=== PATIENT | female | born 1960 | race Two or more races ===

== ENCOUNTER 2018-08-28 13:09 | Inpatient (IN) | payer MEDICAID ==
[~2018-08-28] VITALS: Ht 172.7 cm; Wt 105.6 kg
[~2018-08-28 13:09] MED LIST: LEV50T PO; METF-372 PO
[2018-08-28 14:49] LABS: Albumin 3.5 g/dL (3.4-5.0); Anion Gap 11 (5-15); BUN/Creatinine Ratio 14.2; Basophils # (auto) 0.1 uL; Basophils % (auto) 1.1 % (0.0-2.0); Blood Urea Nitrogen 19 mg/dL (7-18); Calcium 9.2 mg/dL (8.5-10.1); Carbon Dioxide 24 mmol/L (21-32); Chloride 93 mmol/L (98-107); Eosinophils # (auto) 0.2 uL; Eosinophils % (auto) 2.3 % (0.0-7.0); GFR African American 52 mL/min; GFR Non-African American 43 mL/min; Hematocrit 40.8 % (36.0-46.0); Hemoglobin 13.2 g/dL (12.2-16.2); Lymphocytes # (auto) 2.1 uL; Lymphocytes % (auto) 26.5 % (10.0-50.0); Magnesium 1.8 mg/dL (1.6-2.6); Mean Corpuscular Hemoglobin 29.6 pg (28.0-32.0); Mean Corpuscular Hgb Conc. 32.3 g/dL (32.0-36.0); Mean Corpuscular Volume 91.7 fL (80.0-100.0); Monocytes # (auto) 0.5 uL; Monocytes % (auto) 5.9 % (0.0-12.0); Neutrophils # (auto) 5.1 uL; Neutrophils % (auto) 64.2 % (37.0-80.0); Nucleated Red Blood Cells % 0.1 %; Platelet Count (auto) 303 10^3/uL (140-450); Potassium 3.6 mmol/L (3.5-5.1); Red Blood Cells 4.45 10^6/uL (4.0-5.20); Red Cell Distribution Width 13.1 % (11.8-14.3); Sodium 128 mmol/L (136-145)
[2018-08-28 14:52] LABS: Alkaline Phosphatase 124 U/L (45-117); Aspartate Aminotransferase 10 U/L (15-37); Bilirubin, Total 0.4 mg/dL (0.2-1.0); Total Protein 8.7 g/dL (6.4-8.2)
[2018-08-28 15:00] LABS: Alanine Aminotransferase 29 U/L (13-56)
[2018-08-28] MEDS ORDERED: SODIUM CHLORIDE 0.9% 1,000 ML IVB ONE (15:07)
[2018-08-28 15:09] LABS: Glucose 553 mg/dL (74-106)
[2018-08-28 15:14] LABS: Urine Bacteria NONE SEEN /hpf (None Seen); Urine Blood TRACE /uL (Negative); Urine Specific Gravity 1.019 (1.001-1.035); Urine WBC 12 /hpf (0 - 5)
[2018-08-28] MEDS ORDERED: InsuLIN REG 1unit/0.01ml Soln (100units/ml) IV ONE (17:30)
[2018-08-28] MEDS ORDERED: MORPHINE SULFATE 10 MG/ML INJ 1ML SDV IV PRN ×2 (18:30)
[2018-08-28] MEDS ORDERED: PANTOPRAZOLE 40 MG/10 ML VIAL IV ONE (18:30)
[2018-08-28] MEDS ORDERED: NITROGLYCERIN 0.4 MG SL TAB SL PRN (18:30)
[2018-08-28] MEDS ORDERED: PROMETHAZINE HCL 25 MG/ML 1ML IV PRN (18:30)
[2018-08-28] MEDS ORDERED: LORazepam 0.5 MG TAB PO PRN (18:30)
[2018-08-28] MEDS ORDERED: TEMAZEPAM 15 MG CAP PO PRN (18:30)
[2018-08-28] MEDS ORDERED: DEXTROSE (50%) 50ML SYRG IV PRN (18:30)
[2018-08-28] MEDS: SODIUM CHLORIDE 0.9% 1,000 ML IV SCH ×2 (18:42→21:11)
[2018-08-28] MEDS: ACCU-CHEK COMFORT CURVE STRIP VI SCH (20:00)
[2018-08-28 20:33] VITALS: BP 125/84
--- NOTE | 2018-08-28 20:33 | NUR ---
Telemetry admit from ER MARIEL BRISENO admitted to Telemetry unit. Patient oriented to INDERJIT MCKEON, primary RN, unit, room, bed, and unit policies regarding patient care and visiting hours. Patient now on continuous telemetry monitoring, tele box #[id number] and telemetry reading on arrival to unit is SR 77. Patient weighed by bedscale and encouraged to call if they need something. Bed locked in lowest position, side rails upx2, call light within reach. All questions and concerns addressed, patient verbalized understanding.
[2018-08-28] MEDS: InsuLIN REG 1unit/0.01ml Soln (100units/ml) SC SCH (20:51)
[2018-08-28] MEDS: INSULIN LANTUS (GLARGINE) 1 /0.01ml (100units/ml) SC SCH (22:18)
[2018-08-28] MEDS: MORPHINE SULFATE 10 MG/ML INJ 1ML SDV IV PRN (22:42)
[2018-08-28 22:49] VITALS: BP 125/84
[2018-08-29] MEDS: ACCU-CHEK COMFORT CURVE STRIP VI SCH ×6 (00:12→23:50)
[2018-08-29] MEDS ORDERED: INSU1INJ19 SC (01:47)
[2018-08-29] MEDS ORDERED: CHOL20007 PO (01:47)
[2018-08-29] MEDS ORDERED: ENAL2.5T PO (01:47)
[2018-08-29] MEDS ORDERED: ALOG1TAB2 PO (01:47)
[2018-08-29] MEDS ORDERED: LEVO100T8 PO (01:47)
[2018-08-29] MEDS ORDERED: GABA300C10 PO (01:47)
[2018-08-29] MEDS ORDERED: ASPI-498 PO (01:47)
[2018-08-29] MEDS: SODIUM CHLORIDE 0.9% 1,000 ML IV SCH ×2 (03:50→14:00)
[2018-08-29] MEDS: InsuLIN REG 1unit/0.01ml Soln (100units/ml) SC SCH ×6 (03:50→23:49)
[2018-08-29] MEDS: MORPHINE SULFATE 10 MG/ML INJ 1ML SDV IV PRN ×2 (03:54→21:28)
[2018-08-29 05:04] VITALS: BP 95/55
[2018-08-29 05:27] LABS: Hematocrit 36.4 % (36.0-46.0); Hemoglobin 11.6 g/dL (12.2-16.2); Mean Corpuscular Hemoglobin 29.8 pg (28.0-32.0); Mean Corpuscular Hgb Conc. 31.9 g/dL (32.0-36.0); Mean Corpuscular Volume 93.3 fL (80.0-100.0); Platelet Count (auto) 197 10^3/uL (140-450); Red Cell Distribution Width 13.3 % (11.8-14.3); White Blood Cell 8.1 10^3/uL (4.4-10.8)
[2018-08-29 05:33] LABS: Band Neutrophils % (manual) 0; Basophils % (manual) 0 (0.0-2.0); Blast Cells 0; Metamyelocytes % 0; Myelocytes % 0; Promyelocytes % 0; Reactive Lymphocytes 0
[2018-08-29] MEDS: LEVOTHYROXINE SODIUM 50 MCG TAB PO SCH (06:24)
[2018-08-29] MEDS: INSULIN LANTUS (GLARGINE) 1 /0.01ml (100units/ml) SC SCH ×2 (06:36→21:38)
[2018-08-29 06:40] LABS: Eosinophils % (manual) 5 (0-7); Lymphocytes % (manual) 50 (10.0-50.0); Monocytes % (manual) 3 (0-12)
--- NOTE | 2018-08-29 07:43 | NUR ---
OPENING SHIFT NOTE ASSUMED CARE OF PATIENT. PATIENT AWAKE AND ALERT SITTING UP IN BED. NO S/S OF DISTRESS OR SOB NOTED. BED IN LOWEST LOCKED POSITION, CALL LIGHT WITHIN REACH. REVIEWED POC WITH PATIENT AND INSTRUCTED TO CALL FOR ASSIST NEEDED. CONTINUING TO MONITOR.
[2018-08-29 07:50] VITALS: BP 90/53
[2018-08-29] MEDS: cefTRIAXone 1GM/50ML D5W 50 ML IV SCH (08:05)
[2018-08-29 08:56] LABS: Chloride 110 mmol/L (98-107); Sodium 140 mmol/L (136-145)
[2018-08-29 09:04] LABS: Alanine Aminotransferase 22 U/L (13-56); Albumin 2.6 g/dL (3.4-5.0); Alkaline Phosphatase 92 U/L (45-117); Amylase 32 U/L (25-115); Anion Gap 3 (5-15); Aspartate Aminotransferase 17 U/L (15-37); Bilirubin, Total 0.4 mg/dL (0.2-1.0); Blood Urea Nitrogen 12 mg/dL (7-18); Calcium 7.8 mg/dL (8.5-10.1); Carbon Dioxide 27 mmol/L (21-32); Cholesterol 122 mg/dL (< 200); GFR African American > 60 mL/min; GFR Non-African American > 60 mL/min; Glucose 104 mg/dL (74-106); HDL Cholesterol 27 mg/dL (40-59); LDL Cholesterol 72 mg/dL (< 100); Lipase 228 U/L (73-393); Total Protein 6.6 g/dL (6.4-8.2); Triglycerides 266 mg/dL (< 150)
[2018-08-29] MEDS ORDERED: PANTOPRAZOLE 40 MG/10 ML VIAL IV SCH (10:00)
[2018-08-29 12:15] VITALS: BP 108/64
[2018-08-29] MEDS ORDERED: DEXTROSE (50%) 50ML SYRG IV PRN (14:15)
[2018-08-29] MEDS ORDERED: IOHEXOL 300 MG/ML 100ML BOTTLE IJ ONE (14:25)
[2018-08-29 17:06] VITALS: BP 110/59
--- NOTE | 2018-08-29 19:30 | NUR ---
RECEIVED PATIENT LYING IN BED, AWAKE, ALERT, ORIENTED X4. NO S/S OF RESPIRATORY DISTRESS. ORIENTED ON PLAN. BED IS LOCKED AND IN LOWEST LEVEL, SIDE RAILS UP X2, CALL LIGHT WITHIN REACH. WILL CONTINUE TO MONITOR.
[2018-08-29 22:00] VITALS: BP 139/78
[2018-08-29] MEDS ORDERED: INSULIN LANTUS (GLARGINE) 1 /0.01ml (100units/ml) SC SCH (22:00)
[2018-08-30] MEDS: SODIUM CHLORIDE 0.9% 1,000 ML IV SCH ×2 (04:40)
[2018-08-30 05:40] VITALS: BP 123/62
[2018-08-30] MEDS: ACCU-CHEK COMFORT CURVE STRIP VI SCH ×4 (06:08→23:47)
[2018-08-30] MEDS: InsuLIN REG 1unit/0.01ml Soln (100units/ml) SC SCH ×4 (06:08→23:47)
[2018-08-30] MEDS: LEVOTHYROXINE SODIUM 50 MCG TAB PO SCH (07:00)
[2018-08-30] MEDS: INSULIN LANTUS (GLARGINE) 1 /0.01ml (100units/ml) SC SCH ×2 (07:05→22:03)
--- NOTE | 2018-08-30 07:30 | NUR ---
OPENING SHIFT NOTE ASSUMED CARE OF PATIENT. PATIENT RESTING COMFORTABLY IN BED WITH EYES CLOSED. RESPIRATIONS EVEN AND UNLABORED, NO S/S OF DISTRESS OR SOB NOTED. BED IN LOWEST LOCKED POSITION, CALL LIGHT WITHIN REACH. CONTINUING TO MONITOR.
--- NOTE | 2018-08-30 07:57 | NUR ---
CARE ENDORSED TO AM SHIFT RN
[2018-08-30 08:00] VITALS: BP 130/73
[2018-08-30] MEDS: PANTOPRAZOLE 40 MG TAB PO SCH (09:29)
[2018-08-30] MEDS: cefTRIAXone 1GM/50ML D5W 50 ML IV SCH (09:29)
[2018-08-30 12:00] VITALS: BP 148/115
--- NOTE | 2018-08-30 12:50 | NUR ---
ORTHOSTATIC VITAL SIGNS 1221 SITTING 173/90 HR 75 1231 STANDING 162/97 HR 80 1247 FLAT 138/84 HR 69
[2018-08-30] MEDS ORDERED: LEVOTHYROXINE SODIUM 25 MCG TAB PO ONE (13:15)
[2018-08-30 16:00] VITALS: BP_SYST 139; BP_SYST 149; BP_DIAS 59; BP_DIAS 78
[2018-08-30] MEDS: GABAPENTIN 300 MG CAP PO SCH ×2 (16:14→22:02)
[2018-08-30] MEDS: HYDROcodone-ACET 5/325MG TAB PO PRN (16:15)
--- NOTE | 2018-08-30 18:47 | NUR ---
END OF SHIFT NOTE PATIENT AWAKE AND ALERT SITTING ON BEDSIDE. NO S/S OF DISTRESS OR SOB NOTED. BED IN LOWEST LOCKED POSITION, CALL LIGHT WITHIN REACH. WILL ENDORSE CARE TO NOC RN.
[2018-08-30 22:00] VITALS: BP 150/76
[2018-08-31 05:00] VITALS: BP 112/61
[2018-08-31] MEDS: GABAPENTIN 300 MG CAP PO SCH (05:48)
[2018-08-31] MEDS: InsuLIN REG 1unit/0.01ml Soln (100units/ml) SC SCH ×2 (05:49→12:00)
[2018-08-31] MEDS: ACCU-CHEK COMFORT CURVE STRIP VI SCH ×2 (05:49→12:00)
[2018-08-31] MEDS: INSULIN LANTUS (GLARGINE) 1 /0.01ml (100units/ml) SC SCH (06:51)
[2018-08-31] MEDS ORDERED: LEVOTHYROXINE SODIUM 25 MCG TAB PO SCH (07:00)
--- NOTE | 2018-08-31 07:23 | NUR ---
CARE ENDORSED TO AM SHIFT RN
--- NOTE | 2018-08-31 07:30 | NUR ---
RECEIVED REPORT FROM NIGHT NURSE. PATIENT RESTING IN BED, NO DISTRESS NOTED, WILL CONTINUE TO MONITOR.
[2018-08-31] MEDS ORDERED: NITR-52 PO (08:10)
[2018-08-31 09:00] VITALS: BP 113/68
[2018-08-31] MEDS: cefTRIAXone 1GM/50ML D5W 50 ML IV SCH (09:00)
[2018-08-31 09:02] VITALS: BP 113/68
[2018-08-31] MEDS: PANTOPRAZOLE 40 MG TAB PO SCH (10:00)
[2018-08-31] MEDS ORDERED: ENALAPRIL MALEATE 10 MG TAB PO SCH (10:00)
[2018-08-31] MEDS: HYDROcodone-ACET 5/325MG TAB PO PRN (10:17)
--- NOTE | 2018-08-31 11:16 | NUR ---
MEDICATIONS HELD IN PHARMACY, RETURNED TO THE PATIENT. PAPERWORK SIGNED.
--- NOTE | 2018-08-31 13:15 | NUR ---
Discharge instructions given as ordered. Encourage to follow up with PMD as instructed. All questions and concerns addressed. Patient verbalized understanding. Medication reconciliation form completed and copy given to patient. Home medications held in Pharmacy returned to patient. IV removed with catheter intact, pressure dressing applied. Patient taken to vehicle via wheelchair with all personal belongings, accompanied by staff and family member. No distress noted at time of departure.
== END 2018-08-31 13:15 | disposition home or self-care (01) | DRG 282 ==
LOC: EDBD 13:09 → ER 13:13 → TELE 18:21 → TELE-CENTR 20:32 → CENTRAL 08-29 15:43
PROVIDERS: ADMIT Internal Medicine; ATTEND Internal Medicine
DX: K85.90 Acute pancreatitis without necrosis or infection, unspecified (principal); N17.9 Acute kidney failure, unspecified; E11.21 Type 2 diabetes mellitus with diabetic nephropathy; E11.42 Type 2 diabetes mellitus with diabetic polyneuropathy; E11.65 Type 2 diabetes mellitus with hyperglycemia; E66.9 Obesity, unspecified; E86.0 Dehydration; N39.0 Urinary tract infection, site not specified; E87.1 Hypo-osmolality and hyponatremia; D32.9 Benign neoplasm of meninges, unspecified; E03.9 Hypothyroidism, unspecified; I10 Essential (primary) hypertension; N20.0 Calculus of kidney; Z90.49 Acquired absence of other specified parts of digestive tract; Z90.710 Acquired absence of both cervix and uterus; Z68.35 Body mass index [BMI] 35.0-35.9, adult
CPT/HCPCS: 36415; 70450; 71046; 74177; 80053; 80061; 81001; 82150; 82962; 83036; 83690; 83735; 84443; 84484; 85007; 85025; 85027; 87081; 87086; 93005; 96361; 96374; 96375; C9113; G0378; J0696; J1815

== ENCOUNTER 2019-03-19 17:08 | Inpatient (IN) | payer MEDICAID | END 2019-03-21 14:00 | disposition home or self-care (01) | LOC: ER 17:08 → OVERFLOW 17:09 → CENTRAL 23:12 | DX: E11.65 Type 2 diabetes mellitus with hyperglycemia (principal); N17.0 Acute kidney failure with tubular necrosis; E11.22 Type 2 diabetes mellitus with diabetic chronic kidney disease; N30.01 Acute cystitis with hematuria; E03.9 Hypothyroidism, unspecified; N39.0 Urinary tract infection, site not specified; E66.9 Obesity, unspecified; E78.5 Hyperlipidemia, unspecified; I12.9 Hypertensive chronic kidney disease with stage 1 through stage 4 chronic kidney disease, or unspecified chronic kidney disease; N18.9 Chronic kidney disease, unspecified ==

== ENCOUNTER 2019-06-09 16:05 | Emergency (ER) | payer MEDICAID ==
[~2019-06-09] VITALS: Ht 172.7 cm; Wt 101.2 kg
[~2019-06-09 16:05] MED LIST changes: +INSREG3 SUBCUT; +INSU1INJ19 SC; -LEV50T PO; +LEVO100T8 PO; -METF-372 PO
[2019-06-09 17:44] LABS: Basophils # (auto) 0.1 uL; Basophils % (auto) 0.9 % (0.0-2.0); Eosinophils # (auto) 0.3 uL; Hematocrit 36.8 % (36.0-46.0); Hemoglobin 12.3 g/dL (12.2-16.2); Lymphocytes # (auto) 1.6 uL; Lymphocytes % (auto) 18.1 % (10.0-50.0); Mean Corpuscular Hemoglobin 29.6 pg (28.0-32.0); Mean Corpuscular Hgb Conc. 33.3 g/dL (32.0-36.0); Mean Corpuscular Volume 88.8 fL (80.0-100.0); Monocytes # (auto) 0.5 uL; Monocytes % (auto) 5.5 % (0.0-12.0); Neutrophils # (auto) 6.3 uL; Neutrophils % (auto) 72.5 % (37.0-80.0); Platelet Count (auto) 252 10^3/uL (140-450); Red Blood Cells 4.14 10^6/uL (4.0-5.20); Red Cell Distribution Width 13.7 % (11.8-14.3); White Blood Cell 8.7 10^3/uL (4.4-10.8)
[2019-06-09 18:06] LABS: Albumin 3.4 g/dL (3.4-5.0); Anion Gap 6 (5-15); Blood Urea Nitrogen 13 mg/dL (7-18); Calcium 8.5 mg/dL (8.5-10.1); Carbon Dioxide 28 mmol/L (21-32); Chloride 104 mmol/L (98-107); Glucose 338 mg/dL (74-106); Potassium 3.9 mmol/L (3.5-5.1); Sodium 138 mmol/L (136-145)
[2019-06-09 18:11] LABS: Alanine Aminotransferase 48 U/L (13-56); Alkaline Phosphatase 153 U/L (45-117); Aspartate Aminotransferase 78 U/L (15-37); BUN/Creatinine Ratio 12.3; Bilirubin, Total 0.5 mg/dL (0.2-1.0); GFR African American 68 mL/min; GFR Non-African American 57 mL/min; Total Protein 8.3 g/dL (6.4-8.2)
[2019-06-09 20:25] VITALS: BP 137/77
== END 2019-06-09 20:36 | disposition home or self-care (01) ==
LOC: ER 16:07
DX: R07.89 Other chest pain (principal); F41.9 Anxiety disorder, unspecified; E11.9 Type 2 diabetes mellitus without complications; I10 Essential (primary) hypertension; E78.5 Hyperlipidemia, unspecified; Z90.710 Acquired absence of both cervix and uterus; Z98.51 Tubal ligation status; Z90.49 Acquired absence of other specified parts of digestive tract
CPT/HCPCS: 36415; 71045; 80053; 82962; 84484; 85025; 93005

== ENCOUNTER 2019-06-30 12:39 | Emergency (ER) | payer MEDICAID ==
[~2019-06-30] VITALS: Ht 172.7 cm; Wt 100.7 kg
[2019-06-30 13:51] LABS: Basophils # (auto) 0.1 uL; Basophils % (auto) 1.1 % (0.0-2.0); Eosinophils # (auto) 0.2 uL; Eosinophils % (auto) 2.2 % (0.0-7.0); Hematocrit 36.9 % (36.0-46.0); Hemoglobin 12.3 g/dL (12.2-16.2); Lymphocytes # (auto) 2.1 uL; Lymphocytes % (auto) 24.4 % (10.0-50.0); Mean Corpuscular Hemoglobin 29.6 pg (28.0-32.0); Mean Corpuscular Hgb Conc. 33.2 g/dL (32.0-36.0); Mean Corpuscular Volume 89.1 fL (80.0-100.0); Monocytes # (auto) 0.5 uL; Monocytes % (auto) 5.9 % (0.0-12.0); Neutrophils # (auto) 5.8 uL; Neutrophils % (auto) 66.4 % (37.0-80.0); Platelet Count (auto) 271 10^3/uL (140-450); Red Blood Cells 4.15 10^6/uL (4.0-5.20); Red Cell Distribution Width 13.4 % (11.8-14.3); White Blood Cell 8.7 10^3/uL (4.4-10.8)
[2019-06-30 14:32] LABS: Albumin 3.4 g/dL (3.4-5.0); Calcium 8.9 mg/dL (8.5-10.1); Potassium 4.1 mmol/L (3.5-5.1)
[2019-06-30 14:37] LABS: Bilirubin, Total 0.4 mg/dL (0.2-1.0); Total Protein 8.1 g/dL (6.4-8.2)
[2019-06-30] MEDS ORDERED: SODIUM CHLORIDE 0.9% 1,000 ML IV ONE (14:59)
[2019-06-30 16:00] VITALS: BP 139/69
[2019-06-30] MEDS ORDERED: InsuLIN REG 1unit/0.01ml Soln (100units/ml) IV ONE (16:00)
== END 2019-06-30 18:00 | disposition home or self-care (01) ==
LOC: ER 13:00
DX: E11.65 Type 2 diabetes mellitus with hyperglycemia (principal); R55 Syncope and collapse; E78.5 Hyperlipidemia, unspecified; I10 Essential (primary) hypertension; M25.551 Pain in right hip; Z53.29 Procedure and treatment not carried out because of patient's decision for other reasons; Z90.49 Acquired absence of other specified parts of digestive tract; Z98.51 Tubal ligation status; Z90.89 Acquired absence of other organs
CPT/HCPCS: 36415; 80053; 82010; 85025; 93005; 93971; 96361; 96374; 99284; J1815

== ENCOUNTER 2020-12-14 10:29 | Emergency (ER) | payer MEDICAID ==
[~2020-12-14] VITALS: Ht 172.7 cm; Wt 101.2 kg
[2020-12-14 11:14] LABS: Basophils # (auto) 0.1 10 ^3/uL (0-0.2); Basophils % (auto) 1.4 % (0.0-2.0); Eosinophils # (auto) 0.4 10 ^3/uL (0-0.8); Hematocrit 36.8 % (36.0-46.0); Hemoglobin 12.4 g/dL (12.2-16.2); Lymphocytes # (auto) 2.8 10 ^3/uL (0.4-5.4); Lymphocytes % (auto) 27.2 % (10.0-50.0); Mean Corpuscular Hemoglobin 30.2 pg (28.0-32.0); Mean Corpuscular Hgb Conc. 33.7 g/dL (32.0-36.0); Mean Corpuscular Volume 89.6 fL (80.0-100.0); Monocytes # (auto) 0.4 10 ^3/uL (0-1.3); Monocytes % (auto) 4.3 % (0.0-12.0); Neutrophils # (auto) 6.4 10 ^3/uL (1.6-8.6); Neutrophils % (auto) 63.1 % (37.0-80.0); Platelet Count (auto) 308 10^3/uL (140-450); Red Blood Cells 4.11 10^6/uL (4.0-5.20); Red Cell Distribution Width 13.3 % (11.8-14.3); White Blood Cell 10.1 10^3/uL (4.4-10.8)
[2020-12-14 11:38] VITALS: BP 129/69
[2020-12-14 11:41] LABS: Alanine Aminotransferase 18 U/L (13-56); Albumin 3.4 g/dL (3.4-5.0); Anion Gap 7 (5-15); Blood Urea Nitrogen 15 mg/dL (7-18); Calcium 8.9 mg/dL (8.5-10.1); Carbon Dioxide 27 mmol/L (21-32); Chloride 103 mmol/L (98-107); Glucose 151 mg/dL (74-106); Magnesium 2.2 mg/dL (1.6-2.6); Potassium 3.8 mmol/L (3.5-5.1); Sodium 137 mmol/L (136-145)
[2020-12-14 11:46] LABS: Alkaline Phosphatase 87 U/L (45-117); Aspartate Aminotransferase 17 U/L (15-37); BUN/Creatinine Ratio 12.8; Bilirubin, Total 0.5 mg/dL (0.2-1.0); GFR African American 61 mL/min; GFR Non-African American 50 mL/min; Total Protein 8.6 g/dL (6.4-8.2)
[2020-12-14 12:00] LABS: Urine Bacteria FEW /hpf (None Seen); Urine Blood Negative /uL (Negative); Urine Hyaline Cast FEW /lpf (0 - 2); Urine Mucus FEW (None Seen); Urine Specific Gravity 1.017 (1.001-1.035); Urine WBC 131 /hpf (0 - 5); Urine WBC Clumps PRESENT /hpf (None Seen)
[2020-12-14] MEDS ORDERED: cefTRIAXone 1GM/50ML D5W 50 ML IV ONE (12:15)
[2020-12-14] MEDS ORDERED: cefTRIAXone SOD 1,000 MG VL ONE (12:27)
[2020-12-14] MEDS ORDERED: LIDOCAINE 2% (LOCAL ANESTH.) PF 5ml SDV ONE (12:27)
[2020-12-14] MEDS ORDERED: cefTRIAXone W LIDOCAINE 1 GM IM IM ONE (12:30)
== END 2020-12-14 12:40 | disposition home or self-care (01) ==
LOC: EDBD 10:29 → ER 10:29
DX: N39.0 Urinary tract infection, site not specified (principal); R55 Syncope and collapse; I10 Essential (primary) hypertension; E11.40 Type 2 diabetes mellitus with diabetic neuropathy, unspecified; Z79.4 Long term (current) use of insulin; Z79.899 Other long term (current) drug therapy
CPT/HCPCS: 36415; 70450; 71045; 80053; 81001; 83735; 83880; 84484; 85025; 93005; 96372; 99285; J0696; J2001

== ENCOUNTER 2021-03-26 17:19 | Emergency (ER) | payer MEDICAID ==
[~2021-03-26] VITALS: Ht 172.7 cm; Wt 104.3 kg
[2021-03-26 14:08] LABS: Basophils # (auto) 0.1 10 ^3/uL (0-0.2); Basophils % (auto) 1.1 % (0.0-2.0); Eosinophils # (auto) 0.4 10 ^3/uL (0-0.8); Eosinophils % (auto) 4.2 % (0.0-7.0); Hematocrit 35.5 % (36.0-46.0); Hemoglobin 12.1 g/dL (12.2-16.2); Lymphocytes # (auto) 2.9 10 ^3/uL (0.4-5.4); Lymphocytes % (auto) 32.5 % (10.0-50.0); Mean Corpuscular Hemoglobin 30.5 pg (28.0-32.0); Mean Corpuscular Volume 89.5 fL (80.0-100.0); Monocytes # (auto) 0.4 10 ^3/uL (0-1.3); Monocytes % (auto) 4.5 % (0.0-12.0); Neutrophils # (auto) 5.1 10 ^3/uL (1.6-8.6); Neutrophils % (auto) 57.7 % (37.0-80.0); Nucleated Red Blood Cells % 0.1 %; Red Blood Cells 3.97 10^6/uL (4.0-5.20); Red Cell Distribution Width 14.8 % (11.8-14.3); White Blood Cell 8.9 10^3/uL (4.4-10.8)
[2021-03-26 14:35] LABS: Albumin 3.1 g/dL (3.4-5.0); Calcium 8.9 mg/dL (8.5-10.1); Potassium 4.2 mmol/L (3.5-5.1)
[2021-03-26 14:40] LABS: BUN/Creatinine Ratio 10.1; Bilirubin, Total 0.3 mg/dL (0.2-1.0); Total Protein 8.3 g/dL (6.4-8.2)
[2021-03-26 19:41] VITALS: BP 137/64
== END 2021-03-26 19:43 | disposition home or self-care (01) ==
LOC: ER 19:43
DX: R42 Dizziness and giddiness (principal); R94.6 Abnormal results of thyroid function studies; D64.9 Anemia, unspecified; E11.9 Type 2 diabetes mellitus without complications; E78.5 Hyperlipidemia, unspecified; I10 Essential (primary) hypertension; Z20.822 Contact with and (suspected) exposure to COVID-19; Z87.442 Personal history of urinary calculi; Z90.49 Acquired absence of other specified parts of digestive tract; Z98.890 Other specified postprocedural states; Z90.710 Acquired absence of both cervix and uterus; Z98.51 Tubal ligation status
CPT/HCPCS: 36415; 71045; 80053; 84443; 85025; 87426; 93005

== ENCOUNTER 2021-05-25 22:12 | Inpatient (IN) | payer MEDICAID ==
[~2021-05-25] VITALS: Ht 172.7 cm; Wt 109.7 kg
[2021-05-25] MEDS ORDERED: ACCU-CHEK COMFORT CURVE STRIP VI ONE (23:00)
[2021-05-25 23:29] LABS: Basophils # (auto) 0.1 10 ^3/uL (0-0.2); Basophils % (auto) 0.7 % (0.0-2.0); Eosinophils # (auto) 0 10 ^3/uL (0-0.8); Hematocrit 38.2 % (36.0-46.0); Hemoglobin 12.6 g/dL (12.2-16.2); Lymphocytes # (auto) 2.1 10 ^3/uL (0.4-5.4); Mean Corpuscular Hemoglobin 29.6 pg (28.0-32.0); Mean Corpuscular Hgb Conc. 33.1 g/dL (32.0-36.0); Mean Corpuscular Volume 89.3 fL (80.0-100.0); Monocytes # (auto) 1.8 10 ^3/uL (0-1.3); Monocytes % (auto) 8.7 % (0.0-12.0); Neutrophils # (auto) 16.7 10 ^3/uL (1.6-8.6); Neutrophils % (auto) 80.6 % (37.0-80.0); Red Blood Cells 4.28 10^6/uL (4.0-5.20); Red Cell Distribution Width 14.3 % (11.8-14.3); White Blood Cell 20.7 10^3/uL (4.4-10.8)
[2021-05-25 23:57] LABS: Anion Gap 10 (5-15); BUN/Creatinine Ratio 10.1; Blood Urea Nitrogen 18 mg/dL (7-18); Calcium 8.7 mg/dL (8.5-10.1); Carbon Dioxide 25 mmol/L (21-32); Chloride 98 mmol/L (98-107); GFR African American 37 mL/min; GFR Non-African American 31 mL/min; Glucose 312 mg/dL (74-106); Lactic Acid w/Reflex 2.3 mmol/L (0.4-2.0); Sodium 133 mmol/L (136-145)
[2021-05-26 00:03] LABS: Alanine Aminotransferase 16 U/L (13-56); Alkaline Phosphatase 105 U/L (45-117); Aspartate Aminotransferase 13 U/L (15-37); Bilirubin, Total 1.1 mg/dL (0.2-1.0); Total Protein 8.5 g/dL (6.4-8.2)
[2021-05-26 00:07] LABS: Urine Bacteria MANY /hpf (None Seen); Urine Blood 1+ /uL (Negative); Urine Hyaline Cast MANY /lpf (0 - 2); Urine Mucus FEW (None Seen); Urine Specific Gravity 1.016 (1.001-1.035); Urine WBC 447 /hpf (0 - 5); Urine WBC Clumps PRESENT /hpf (None Seen)
[2021-05-26] MEDS ORDERED: cefTRIAXone 1GM/50ML D5W 50 ML IV ONE (01:00)
[2021-05-26] MEDS ORDERED: SODIUM CHLORIDE 0.9% 1,000 ML IV ONE (01:00)
[2021-05-26] MEDS ORDERED: ONDANSETRON HCL 4 MG/2 ML VIAL IV ONE (01:00)
[2021-05-26] MEDS ORDERED: DEXTROSE (50%) 50ML SYRG IV PRN (06:15)
[2021-05-26] MEDS ORDERED: SODIUM CHLORIDE 0.9% 1,000 ML IV SCH (06:15)
[2021-05-26] MEDS ORDERED: NITROGLYCERIN 0.4 MG SL TAB SL PRN (06:15)
[2021-05-26] MEDS ORDERED: MORPHINE SULFATE INJECTION 2 MG/ML SYRG IV PRN (06:15)
[2021-05-26 06:56] LABS: Hematocrit 36.6 % (36.0-46.0); Hemoglobin 11.9 g/dL (12.2-16.2)
[2021-05-26] MEDS: cefTRIAXone 1GM/50ML D5W 50 ML IV SCH (09:23)
[2021-05-26] MEDS: PANTOPRAZOLE 40 MG/10 ML VIAL INJ IV SCH ×2 (09:23→22:25)
[2021-05-26] MEDS: ACCU-CHEK COMFORT CURVE STRIP VI SCH ×2 (15:24→18:13)
[2021-05-26] MEDS: SODIUM CHLORIDE 0.9% 1,000 ML IV SCH ×2 (15:24→21:30)
[2021-05-26] MEDS: metroNIDAZOLE 500MG/100ML 100 ML IV SCH ×2 (15:24→22:25)
[2021-05-26] MEDS: InsuLIN REG 1unit/0.01ml Soln (100units/ml) SC SCH ×2 (15:42→18:14)
[2021-05-26 15:50] LABS: INR 1.1 (0.9-1.15)
[2021-05-26 16:53] VITALS: BP 131/60
[2021-05-26 17:00] VITALS: BP 116/63
[2021-05-26] MEDS: SUCRALFATE 1 GM/10 ML ORAL SUSP PO SCH ×2 (18:14→22:25)
[2021-05-26 22:00] VITALS: BP 108/53
[2021-05-26] MEDS: HYDROcodone-ACET 7.5/325MG TAB PO PRN (23:18)
[2021-05-27] MEDS: ACCU-CHEK COMFORT CURVE STRIP VI SCH ×4 (00:04→18:46)
[2021-05-27 05:00] VITALS: BP 118/61
[2021-05-27] MEDS: SODIUM CHLORIDE 0.9% 1,000 ML IV SCH ×3 (05:30→21:30)
[2021-05-27] MEDS: InsuLIN REG 1unit/0.01ml Soln (100units/ml) SC SCH ×4 (05:50→18:46)
[2021-05-27] MEDS: metroNIDAZOLE 500MG/100ML 100 ML IV SCH ×3 (05:51→21:46)
[2021-05-27] MEDS: SUCRALFATE 1 GM/10 ML ORAL SUSP PO SCH ×4 (06:27→21:46)
[2021-05-27 06:29] LABS: Basophils # (auto) 0.1 10 ^3/uL (0-0.2); Basophils % (auto) 0.7 % (0.0-2.0); Eosinophils # (auto) 0.1 10 ^3/uL (0-0.8); Eosinophils % (auto) 1.2 % (0.0-7.0); Hematocrit 31.6 % (36.0-46.0); Hemoglobin 10.3 g/dL (12.2-16.2); Lymphocytes # (auto) 2.2 10 ^3/uL (0.4-5.4); Lymphocytes % (auto) 17.5 % (10.0-50.0); Mean Corpuscular Hemoglobin 29.1 pg (28.0-32.0); Mean Corpuscular Hgb Conc. 32.5 g/dL (32.0-36.0); Mean Corpuscular Volume 89.5 fL (80.0-100.0); Monocytes # (auto) 1.4 10 ^3/uL (0-1.3); Monocytes % (auto) 11.2 % (0.0-12.0); Neutrophils # (auto) 8.7 10 ^3/uL (1.6-8.6); Neutrophils % (auto) 69.4 % (37.0-80.0); Red Blood Cells 3.53 10^6/uL (4.0-5.20); Red Cell Distribution Width 13.9 % (11.8-14.3); White Blood Cell 12.5 10^3/uL (4.4-10.8)
[2021-05-27 06:44] LABS: Albumin 2.2 g/dL (3.4-5.0); BUN/Creatinine Ratio 10.4; Calcium 8.1 mg/dL (8.5-10.1); Potassium 3.7 mmol/L (3.5-5.1)
[2021-05-27 06:46] LABS: Bilirubin, Total 0.5 mg/dL (0.2-1.0); Total Protein 6.7 g/dL (6.4-8.2)
[2021-05-27] MEDS ORDERED: fentaNYL CITRATE 100 MCG/2 ML VL ONE (08:07)
[2021-05-27] MEDS ORDERED: diphenhdrAMINE HCL 50 MG/1 ML VL ONE (08:07)
[2021-05-27] MEDS ORDERED: SODIUM CHLORIDE LOCK 10 ML ONE (08:07)
[2021-05-27] MEDS ORDERED: MIDAZOLAM HCL 5 MG/ML-1ML VIAL ONE (08:07)
[2021-05-27] MEDS ORDERED: LIDOCAINE VISCOUS 2% 15ML UD ONE (08:07)
[2021-05-27 09:00] VITALS: BP 106/67
[2021-05-27] MEDS ORDERED: LEVOTHYROXINE SODIUM 112 MCG TAB PO ONE (09:15)
[2021-05-27] MEDS: PANTOPRAZOLE 40 MG/10 ML VIAL INJ IV SCH ×2 (10:31→21:46)
[2021-05-27] MEDS: cefTRIAXone 1GM/50ML D5W 50 ML IV SCH (10:31)
[2021-05-27] MEDS: LINEZOLID 600MG/300ML 300 ML IV SCH ×2 (11:39→22:26)
[2021-05-27 13:00] VITALS: BP 82/48
[2021-05-27 17:00] VITALS: BP 93/60
[2021-05-27] MEDS: HYDROcodone-ACET 7.5/325MG TAB PO PRN (20:14)
[2021-05-27] MEDS: ONDANSETRON HCL 4 MG/2 ML VIAL IV PRN (21:17)
[2021-05-27 22:00] VITALS: BP 115/64
[2021-05-28 05:00] VITALS: BP 97/47
[2021-05-28] MEDS: SODIUM CHLORIDE 0.9% 1,000 ML IV SCH ×3 (05:30→21:30)
[2021-05-28] MEDS: metroNIDAZOLE 500MG/100ML 100 ML IV SCH (06:00)
[2021-05-28] MEDS: ACCU-CHEK COMFORT CURVE STRIP VI SCH ×5 (06:22→23:38)
[2021-05-28] MEDS: SUCRALFATE 1 GM/10 ML ORAL SUSP PO SCH ×4 (06:23→22:56)
[2021-05-28] MEDS: LEVOTHYROXINE SODIUM 112 MCG TAB PO SCH (06:23)
[2021-05-28] MEDS: InsuLIN REG 1unit/0.01ml Soln (100units/ml) SC SCH ×5 (06:24→23:40)
[2021-05-28] MEDS: HYDROcodone-ACET 7.5/325MG TAB PO PRN (06:40)
[2021-05-28 09:00] VITALS: BP 123/63
[2021-05-28] MEDS: PANTOPRAZOLE 40 MG/10 ML VIAL INJ IV SCH ×2 (09:19→22:56)
[2021-05-28] MEDS: cefTRIAXone 1GM/50ML D5W 50 ML IV SCH (09:19)
[2021-05-28] MEDS: LINEZOLID 600MG/300ML 300 ML IV SCH ×2 (11:00→22:56)
[2021-05-28] MEDS: ONDANSETRON HCL 4 MG/2 ML VIAL IV PRN (11:00)
[2021-05-28 13:00] VITALS: BP 104/50
[2021-05-28] MEDS: metroNIDAZOLE 500 MG TAB PO SCH ×2 (15:29→22:56)
[2021-05-28 17:00] VITALS: BP 126/67
[2021-05-28 21:42] VITALS: BP 130/78
[2021-05-29 04:43] VITALS: BP 128/70
[2021-05-29 05:18] LABS: Basophils # (auto) 0.1 10 ^3/uL (0-0.2); Basophils % (auto) 1.2 % (0.0-2.0); Eosinophils # (auto) 0.5 10 ^3/uL (0-0.8); Eosinophils % (auto) 4.7 % (0.0-7.0); Hematocrit 31.9 % (36.0-46.0); Hemoglobin 10.6 g/dL (12.2-16.2); Lymphocytes # (auto) 2.3 10 ^3/uL (0.4-5.4); Mean Corpuscular Hemoglobin 29.7 pg (28.0-32.0); Mean Corpuscular Hgb Conc. 33.2 g/dL (32.0-36.0); Mean Corpuscular Volume 89.4 fL (80.0-100.0); Monocytes # (auto) 0.6 10 ^3/uL (0-1.3); Monocytes % (auto) 6.6 % (0.0-12.0); Neutrophils # (auto) 6.1 10 ^3/uL (1.6-8.6); Neutrophils % (auto) 63.5 % (37.0-80.0); Red Blood Cells 3.57 10^6/uL (4.0-5.20); Red Cell Distribution Width 13.8 % (11.8-14.3); White Blood Cell 9.6 10^3/uL (4.4-10.8)
[2021-05-29] MEDS: metroNIDAZOLE 500 MG TAB PO SCH ×3 (05:39→21:49)
[2021-05-29] MEDS: SODIUM CHLORIDE 0.9% 1,000 ML IV SCH ×3 (05:39→21:30)
[2021-05-29] MEDS: ACCU-CHEK COMFORT CURVE STRIP VI SCH ×3 (05:39→18:22)
[2021-05-29] MEDS: InsuLIN REG 1unit/0.01ml Soln (100units/ml) SC SCH ×3 (05:42→18:22)
[2021-05-29] MEDS: SUCRALFATE 1 GM/10 ML ORAL SUSP PO SCH ×4 (06:35→21:49)
[2021-05-29] MEDS: LEVOTHYROXINE SODIUM 112 MCG TAB PO SCH (06:36)
[2021-05-29 09:00] VITALS: BP 140/91
[2021-05-29] MEDS: cefTRIAXone 1GM/50ML D5W 50 ML IV SCH (09:07)
[2021-05-29] MEDS: PANTOPRAZOLE 40 MG/10 ML VIAL INJ IV SCH ×2 (10:42→22:34)
[2021-05-29] MEDS: LINEZOLID 600MG/300ML 300 ML IV SCH ×2 (10:42→22:35)
[2021-05-29] MEDS: HYDROcodone-ACET 7.5/325MG TAB PO PRN (11:16)
[2021-05-29 13:07] VITALS: BP 131/63
[2021-05-29 17:00] VITALS: BP 108/64
[2021-05-29 22:00] VITALS: BP 117/71
[2021-05-30] MEDS: ACCU-CHEK COMFORT CURVE STRIP VI SCH ×5 (00:03→23:31)
[2021-05-30] MEDS: InsuLIN REG 1unit/0.01ml Soln (100units/ml) SC SCH ×5 (00:05→23:33)
[2021-05-30] MEDS: ONDANSETRON HCL 4 MG/2 ML VIAL IV PRN ×4 (04:19→21:49)
[2021-05-30 05:00] VITALS: BP 136/77
[2021-05-30 06:03] LABS: Basophils # (auto) 0.1 10 ^3/uL (0-0.2); Basophils % (auto) 1.4 % (0.0-2.0); Eosinophils # (auto) 0.3 10 ^3/uL (0-0.8); Eosinophils % (auto) 3.7 % (0.0-7.0); Hematocrit 30.8 % (36.0-46.0); Hemoglobin 10.2 g/dL (12.2-16.2); Lymphocytes # (auto) 1.8 10 ^3/uL (0.4-5.4); Mean Corpuscular Hemoglobin 29.1 pg (28.0-32.0); Mean Corpuscular Hgb Conc. 33.2 g/dL (32.0-36.0); Mean Corpuscular Volume 87.8 fL (80.0-100.0); Monocytes # (auto) 0.6 10 ^3/uL (0-1.3); Monocytes % (auto) 6.7 % (0.0-12.0); Neutrophils # (auto) 5.7 10 ^3/uL (1.6-8.6); Neutrophils % (auto) 67.2 % (37.0-80.0); Red Blood Cells 3.51 10^6/uL (4.0-5.20); Red Cell Distribution Width 14.2 % (11.8-14.3); White Blood Cell 8.6 10^3/uL (4.4-10.8)
[2021-05-30 06:18] LABS: INR 1.05 (0.9-1.15); Partial Thromboplastin Time 27.3 sec (23.6-33.0)
[2021-05-30] MEDS: LEVOTHYROXINE SODIUM 112 MCG TAB PO SCH (06:30)
[2021-05-30] MEDS: SUCRALFATE 1 GM/10 ML ORAL SUSP PO SCH ×4 (06:30→21:51)
[2021-05-30] MEDS: SODIUM CHLORIDE 0.9% 1,000 ML IV SCH (06:31)
[2021-05-30] MEDS: metroNIDAZOLE 500 MG TAB PO SCH ×2 (06:31→14:19)
[2021-05-30 06:33] LABS: Albumin 2.2 g/dL (3.4-5.0); Calcium 8.4 mg/dL (8.5-10.1); Magnesium 1.9 mg/dL (1.6-2.6); Potassium 3.8 mmol/L (3.5-5.1)
[2021-05-30 06:37] LABS: BUN/Creatinine Ratio 10.5; Bilirubin, Total 0.3 mg/dL (0.2-1.0); Phosphorus 1.9 mg/dL (2.5-4.90); Total Protein 6.6 g/dL (6.4-8.2)
[2021-05-30 09:00] VITALS: BP 138/74
[2021-05-30] MEDS: LINEZOLID 600MG/300ML 300 ML IV SCH (09:22)
[2021-05-30] MEDS: cefTRIAXone 1GM/50ML D5W 50 ML IV SCH (09:22)
[2021-05-30] MEDS: PANTOPRAZOLE 40 MG/10 ML VIAL INJ IV SCH ×2 (09:23→21:48)
[2021-05-30] MEDS ORDERED: POTASSIUM PHOSPHATE 26.4 MEQ in SODIUM CHL 0.9% 100 ML IV ONE (12:15)
[2021-05-30 13:00] VITALS: BP 134/80
[2021-05-30 17:29] VITALS: BP 134/77
[2021-05-30] MEDS: HYDROcodone-ACET 7.5/325MG TAB PO PRN (21:50)
[2021-05-30] MEDS: AMOXICILLIN TRIHYDRATE 250 MG CAP PO SCH (21:51)
[2021-05-30 22:00] VITALS: BP 136/75
[2021-05-31 05:00] VITALS: BP 116/67
[2021-05-31] MEDS: InsuLIN REG 1unit/0.01ml Soln (100units/ml) SC SCH ×2 (06:00→12:30)
[2021-05-31] MEDS: SUCRALFATE 1 GM/10 ML ORAL SUSP PO SCH ×2 (06:08→11:30)
[2021-05-31] MEDS: AMOXICILLIN TRIHYDRATE 250 MG CAP PO SCH ×2 (06:08→13:43)
[2021-05-31] MEDS: ACCU-CHEK COMFORT CURVE STRIP VI SCH ×2 (06:09→12:29)
[2021-05-31] MEDS ORDERED: LEVOTHYROXINE SODIUM 50 MCG TAB PO SCH (07:00)
[2021-05-31 07:46] LABS: Calcium 8.4 mg/dL (8.5-10.1); Magnesium 1.8 mg/dL (1.6-2.6); Phosphorus 2.8 mg/dL (2.5-4.90); Potassium 3.9 mmol/L (3.5-5.1)
[2021-05-31 08:37] LABS: Basophils # (auto) 0.1 10 ^3/uL (0-0.2); Basophils % (auto) 1.1 % (0.0-2.0); Eosinophils # (auto) 0.4 10 ^3/uL (0-0.8); Eosinophils % (auto) 5.3 % (0.0-7.0); Hematocrit 34.2 % (36.0-46.0); Hemoglobin 10.8 g/dL (12.2-16.2); Lymphocytes # (auto) 2.6 10 ^3/uL (0.4-5.4); Lymphocytes % (auto) 31.4 % (10.0-50.0); Mean Corpuscular Hemoglobin 28.9 pg (28.0-32.0); Mean Corpuscular Hgb Conc. 31.5 g/dL (32.0-36.0); Mean Corpuscular Volume 91.8 fL (80.0-100.0); Monocytes # (auto) 0.6 10 ^3/uL (0-1.3); Monocytes % (auto) 6.8 % (0.0-12.0); Neutrophils # (auto) 4.6 10 ^3/uL (1.6-8.6); Neutrophils % (auto) 55.4 % (37.0-80.0); Nucleated Red Blood Cells % 0.1 %; Red Blood Cells 3.73 10^6/uL (4.0-5.20); Red Cell Distribution Width 14.5 % (11.8-14.3); White Blood Cell 8.3 10^3/uL (4.4-10.8)
[2021-05-31] MEDS: PANTOPRAZOLE 40 MG/10 ML VIAL INJ IV SCH (08:44)
[2021-05-31] MEDS: ONDANSETRON HCL 4 MG/2 ML VIAL IV PRN (08:53)
[2021-05-31 09:00] VITALS: BP 113/67
== END 2021-05-31 17:00 | disposition home or self-care (01) | DRG 720 ==
LOC: ER 22:12 → OVERFLOW 05-26 06:12 → WEST WING 05-26 14:31
PROVIDERS: ADMIT Nurse Practitioner; ATTEND Internal Medicine
PROC: 0DB68ZX Excision of Stomach, Via Natural or Artificial Opening Endoscopic, Diagnostic (ICD-10-PCS; principal; 2021-05-27 09:00)
DX: A41.9 Sepsis, unspecified organism (principal); N17.0 Acute kidney failure with tubular necrosis; K29.71 Gastritis, unspecified, with bleeding; E44.0 Moderate protein-calorie malnutrition; K29.81 Duodenitis with bleeding; E83.59 Other disorders of calcium metabolism; N12 Tubulo-interstitial nephritis, not specified as acute or chronic; I12.9 Hypertensive chronic kidney disease with stage 1 through stage 4 chronic kidney disease, or unspecified chronic kidney disease; E03.9 Hypothyroidism, unspecified; S82.832A Other fracture of upper and lower end of left fibula, initial encounter for closed fracture; E11.22 Type 2 diabetes mellitus with diabetic chronic kidney disease; E66.9 Obesity, unspecified; M25.511 Pain in right shoulder; R55 Syncope and collapse; N29 Other disorders of kidney and ureter in diseases classified elsewhere; E86.0 Dehydration; D50.0 Iron deficiency anemia secondary to blood loss (chronic); Z20.822 Contact with and (suspected) exposure to COVID-19; N18.31 Chronic kidney disease, stage 3a; W18.39XA Other fall on same level, initial encounter; K21.9 Gastro-esophageal reflux disease without esophagitis; E78.5 Hyperlipidemia, unspecified; M51.16 Intervertebral disc disorders with radiculopathy, lumbar region; R29.6 Repeated falls; Z68.35 Body mass index [BMI] 35.0-35.9, adult; Z82.49 Family history of ischemic heart disease and other diseases of the circulatory system; Z83.3 Family history of diabetes mellitus; Z87.442 Personal history of urinary calculi; Z90.49 Acquired absence of other specified parts of digestive tract; Z90.710 Acquired absence of both cervix and uterus; Y93.89 Activity, other specified; Y92.89 Other specified places as the place of occurrence of the external cause; Y99.8 Other external cause status
CPT/HCPCS: 36415; 43239; 71045; 73610; 74176; 80048; 80053; 81001; 82962; 83605; 83735; 83880; 83970; 84100; 84443; 84484; 85014; 85018; 85025; 85610; 85730; 87040; 87086; 87088; 87186; 87426; 93005; 96361; 96365; 96366; 96375; C9113; G0378; J0696; J1815; J2250; J2405; J3490

== ENCOUNTER 2021-09-12 14:20 | Emergency (ER) | payer MEDICAID ==
[~2021-09-12] VITALS: Ht 172.7 cm; Wt 99.8 kg
[2021-09-12 15:33] LABS: Albumin 3.2 g/dL (3.4-5.0); Calcium 8.6 mg/dL (8.5-10.1); Potassium 3.9 mmol/L (3.5-5.1)
[2021-09-12 15:36] LABS: Basophils # (auto) 0.1 10 ^3/uL (0-0.2); Basophils % (auto) 1.9 % (0.0-2.0); Eosinophils # (auto) 0.2 10 ^3/uL (0-0.8); Eosinophils % (auto) 2.4 % (0.0-7.0); Hematocrit 39.7 % (36.0-46.0); Hemoglobin 13.4 g/dL (12.2-16.2); Lymphocytes # (auto) 2.5 10 ^3/uL (0.4-5.4); Lymphocytes % (auto) 33.8 % (10.0-50.0); Mean Corpuscular Hemoglobin 30.2 pg (28.0-32.0); Mean Corpuscular Hgb Conc. 33.6 g/dL (32.0-36.0); Monocytes # (auto) 0.3 10 ^3/uL (0-1.3); Monocytes % (auto) 3.9 % (0.0-12.0); Neutrophils # (auto) 4.3 10 ^3/uL (1.6-8.6); Nucleated Red Blood Cells % 0.2 %; Red Blood Cells 4.41 10^6/uL (4.0-5.20); Red Cell Distribution Width 14.8 % (11.8-14.3); White Blood Cell 7.4 10^3/uL (4.4-10.8)
[2021-09-12 15:42] LABS: BUN/Creatinine Ratio 9.7; Bilirubin, Total 0.7 mg/dL (0.2-1.0); Total Protein 7.7 g/dL (6.4-8.2)
[2021-09-12 16:08] LABS: Urine Bacteria NONE SEEN /hpf (None Seen); Urine Blood TRACE /uL (Negative); Urine Specific Gravity 1.017 (1.001-1.035); Urine WBC 134 /hpf (0 - 5)
[2021-09-12] MEDS ORDERED: SODIUM CHLORIDE 0.9% 1,000 ML IV ONE (17:00)
[2021-09-12] MEDS ORDERED: InsuLIN REG 1unit/0.01ml Soln (100units/ml) IV ONE (17:00)
[2021-09-12 17:49] VITALS: BP 146/97
== END 2021-09-12 16:53 | disposition home or self-care (01) ==
LOC: ER 14:20
DX: M54.12 Radiculopathy, cervical region (principal); E11.65 Type 2 diabetes mellitus with hyperglycemia; I12.9 Hypertensive chronic kidney disease with stage 1 through stage 4 chronic kidney disease, or unspecified chronic kidney disease; E11.22 Type 2 diabetes mellitus with diabetic chronic kidney disease; N18.9 Chronic kidney disease, unspecified; Z90.49 Acquired absence of other specified parts of digestive tract; Z90.710 Acquired absence of both cervix and uterus; Z90.89 Acquired absence of other organs; Z98.51 Tubal ligation status
CPT/HCPCS: 36415; 70450; 71045; 72125; 80053; 81001; 82962; 84484; 85025; 93005; 96361; 96374; 99285; J1815; J7030

== ENCOUNTER 2022-03-27 23:03 | Emergency (ER) | payer MEDICAID ==
[~2022-03-27] VITALS: Ht 172.7 cm; Wt 110.0 kg
[2022-03-28 00:18] LABS: Basophils # (auto) 0.1 10 ^3/uL (0-0.2); Basophils % (auto) 1.3 % (0.0-2.0); Eosinophils # (auto) 0.1 10 ^3/uL (0-0.8); Eosinophils % (auto) 1.4 % (0.0-7.0); Hematocrit 36.4 % (36.0-46.0); Hemoglobin 11.9 g/dL (12.2-16.2); Lymphocytes # (auto) 2.5 10 ^3/uL (0.4-5.4); Lymphocytes % (auto) 26.1 % (10.0-50.0); Mean Corpuscular Hemoglobin 29.2 pg (28.0-32.0); Mean Corpuscular Hgb Conc. 32.7 g/dL (32.0-36.0); Mean Corpuscular Volume 89.3 fL (80.0-100.0); Monocytes # (auto) 0.7 10 ^3/uL (0-1.3); Monocytes % (auto) 7.2 % (0.0-12.0); Neutrophils # (auto) 6.2 10 ^3/uL (1.6-8.6); Red Blood Cells 4.08 10^6/uL (4.0-5.20); Red Cell Distribution Width 13.4 % (11.8-14.3); White Blood Cell 9.7 10^3/uL (4.4-10.8)
[2022-03-28 00:39] LABS: Albumin 3.3 g/dL (3.4-5.0); BUN/Creatinine Ratio 10.4; Calcium 9.2 mg/dL (8.5-10.1)
[2022-03-28 00:42] LABS: Bilirubin, Total 0.6 mg/dL (0.2-1.0); Total Protein 7.7 g/dL (6.4-8.2)
[2022-03-28] MEDS ORDERED: TAM04C PO (06:26)
[2022-03-28] MEDS ORDERED: PERCOT PO (06:26)
[2022-03-28] MEDS ORDERED: CIPR-173 PO (06:26)
[2022-03-28 07:08] LABS: Urine Bacteria FEW /hpf (None Seen); Urine Blood Negative /uL (Negative); Urine Specific Gravity 1.016 (1.001-1.035); Urine WBC 84 /hpf (0 - 5)
[2022-03-28 07:30] VITALS: BP 102/45
== END 2022-03-28 06:20 | disposition home or self-care (01) ==
LOC: ER 23:03 → EDBD 23:03 → ER 03-28 06:20
DX: N20.0 Calculus of kidney (principal); I12.9 Hypertensive chronic kidney disease with stage 1 through stage 4 chronic kidney disease, or unspecified chronic kidney disease; E11.22 Type 2 diabetes mellitus with diabetic chronic kidney disease; N18.9 Chronic kidney disease, unspecified; E78.5 Hyperlipidemia, unspecified; E03.9 Hypothyroidism, unspecified; Z90.49 Acquired absence of other specified parts of digestive tract; Z90.89 Acquired absence of other organs; Z90.710 Acquired absence of both cervix and uterus; Z79.4 Long term (current) use of insulin; Z79.899 Other long term (current) drug therapy
CPT/HCPCS: 36415; 71045; 74176; 80053; 81001; 83690; 84484; 85025; 93005